=== PATIENT | male | born 1960 | race Caucasian/White ===

== ENCOUNTER 2017-10-07 18:55 | Emergency (ER) | payer OTHER ==
[~2017-10-07] VITALS: Ht 177.8 cm; Wt 163.3 kg
[2017-10-07 19:31] VITALS: BP 135/79
[2017-10-07] MEDS: KETOROLAC TROMETH 60MG/2ML VIAL IM ONE (22:19)
[2017-10-07] MEDS: BACLOFEN 10 MG TAB PO ONE (23:35)
== END 2017-10-08 04:53 | disposition home or self-care (01) ==
LOC: ER 18:55
DX: S43.421A Sprain of right rotator cuff capsule, initial encounter (principal); Z88.2 Allergy status to sulfonamides; W19.XXXA Unspecified fall, initial encounter; Y93.89 Activity, other specified; Y99.8 Other external cause status; Y92.89 Other specified places as the place of occurrence of the external cause
CPT/HCPCS: 73030; 96372; 99284; J1885; 82962